=== PATIENT | male | born 1930 | race Caucasian/White ===

== ENCOUNTER → 2016-07-24 | Outpatient (CLI) | payer MEDICARE, OTHER ==
[~2016-07-24] MED LIST: ALFU10TA3; L-METAB10; RABE1TAB PO; RANI150C PO; TOPA25TA8 PO
[2016-07-24 12:54] LABS: HEMATOCRIT 45.3 % (39.0-51.0); MEAN CORPUSCULAR HGB CONC 32.5 % (32.0-36.0); PLATELET COUNT 150 TH/MM3 (150-450); RED BLOOD COUNT 5.66 MIL/MM3 (4.50-5.90); REVIEW FLAG FINAL; WHITE BLOOD COUNT 5.9 TH/MM3 (4.0-11.0)
[2016-07-24 13:34] LABS: ALKALINE PHOSPHATASE 103 U/L (45-117); ALT (GPT) 13 U/L (12-78); ANION GAP 8 MEQ/L (5-15); AST (GOT) 8 U/L (15-37); BICARBONATE 27.5 MEQ/L (21.0-32.0); BLOOD UREA NITROGEN 14 MG/DL (7-18); CHLORIDE 108 MEQ/L (98-107); GLOMERULAR FILTRATION RATE 56 ML/MIN (>89); POTASSIUM 4.9 MEQ/L (3.5-5.1); SODIUM (NA) 143 MEQ/L (136-145); TOTAL BILIRUBIN ADULT 0.7 MG/DL (0.2-1.0)
== END ==
LOC: PLAB 10:49
PROVIDERS: ATTEND Internal Medicine Hematology
DX: C34.10 Malignant neoplasm of upper lobe, unspecified bronchus or lung (principal); Z12.5 Encounter for screening for malignant neoplasm of prostate
CPT/HCPCS: 36415; 80053; 85027; G0103